=== PATIENT | female | born 1935 | race Caucasian/White ===

== ENCOUNTER 2017-07-11 17:35 | Inpatient (IN) | payer MEDICARE, OTHER ==
[2017-07-11 18:05] LABS: ADD MAN DIFF? NO
[2017-07-11 18:08] LABS: BASOPHIL # 0.1 10^3/ul (0.0-0.1); BASOPHILS % 0.4 % (0.0-2.0); EOSINOPHILS % 0.2 % (0.0-7.0); HEMATOCRIT 37.8 % (37.0-47.0); HEMOGLOBIN 12.3 g/dl (12.0-16.0); LYMPHOCYTES # 1.6 10^3/ul (0.8-2.9); LYMPHOCYTES % 8.9 % (15.0-51.0); MEAN CORPUSCULAR HEMOGLOBIN 30.1 pg (29.0-33.0); MEAN CORPUSCULAR HGB CONC 32.5 g/dl (32.0-37.0); MEAN CORPUSCULAR VOLUME 92.4 fl (82.0-101.0); MEAN PLATELET VOLUME 10.2 fl (7.4-10.4); MONOCYTE # 1.3 10^3/ul (0.3-0.9); MONOCYTES % 7.1 % (0.0-11.0); NEUTROPHIL # 14.8 10^3/ul (1.6-7.5); NEUTROPHILS % 82.2 % (39.0-77.0); PLATELET COUNT 240 10^3/UL (140-415); RED BLOOD COUNT 4.09 10^6/ul (4.20-5.40); RED CELL DISTRIBUTION WIDTH 14.4 % (11.5-14.5)
[2017-07-11] MEDS: ONDANSETRON 4 MG INJ IV ×2 (18:10→19:00)
[2017-07-11] MEDS: SOD CHLORIDE 0.9% 1,000 ML IV (18:10)
[2017-07-11] MEDS: FAMOTIDINE 20 MG INJ IV (18:10)
[2017-07-11 18:23] LABS: ALANINE AMINOTRANSFERASE 43 IU/L (13-69); ALBUMIN/GLOBULIN RATIO 1.21; ALKALINE PHOSPHATASE 75 IU/L (42-121); ANION GAP 12 (8-16); ASPARTATE AMINO TRANSFERASE 75 IU/L (15-46); BILIRUBIN,INDIRECT 0.3 mg/dl (0-1.1); BILIRUBIN,TOTAL 0.3 mg/dl (0.2-1.3); BLOOD UREA NITROGEN 15 mg/dl (7-20); CALCIUM 10.4 mg/dl (8.4-10.2); CARBON DIOXIDE 33 mmol/L (21-31); CHLORIDE 102 mmol/L (97-110); CREATININE 0.76 mg/dl (0.44-1.00); GLUCOSE 181 mg/dl (70-220); POTASSIUM 4.3 mmol/L (3.5-5.1); SODIUM 143 mmol/L (135-144); TOTAL PROTEIN 7.3 g/dl (6.1-8.1)
[2017-07-11 18:28] LABS: PROTIME 13.3 Sec (11.9-14.9)
[2017-07-11 18:29] LABS: PARTIAL THROMBOPLASTIN TIME 22.9 Sec (25.0-35.0)
[2017-07-11 18:30] LABS: AMYLASE 2309 U/L (11-123)
[2017-07-11 18:35] LABS: TROPONIN-I < 0.012 ng/ml (0.00-0.12)
[2017-07-11] MEDS: morphine 2 MG INJ IV (18:59)
[2017-07-11 19:07] LABS: LIPASE 19965 U/L (23-300)
[2017-07-11 21:22] LABS: ADD UMIC NO; UR ASCORBIC ACID NEGATIVE (NEGATIVE); UR BILIRUBIN (Dip) NEGATIVE (NEGATIVE); UR BLOOD (Dip) NEGATIVE (NEGATIVE); UR CLARITY CLEAR (CLEAR); UR COLOR STRAW (YELLOW); UR GLUCOSE (Dip) NEGATIVE (NEGATIVE); UR KETONES (Dip) TRACE mg/dL (NEGATIVE); UR LEUKOCYTE ESTERASE (Dip) NEGATIVE Leu/ul (NEGATIVE); UR NITRITE (Dip) NEGATIVE (NEGATIVE); UR SPECIFIC GRAVITY (Dip) 1.008 (1.003-1.030); UR TOTAL PROTEIN (Dip) NEGATIVE (NEGATIVE); UR UROBILINOGEN (Dip) NEGATIVE (NEGATIVE)
[2017-07-11] MEDS: IODIXANOL LOCM 100 ML BTL (21:22)
[2017-07-11] MEDS: SOD CHLORIDE 0.9% 100 ML (21:22)
[2017-07-11] MEDS ORDERED: NACL 0.9% 3 ML SYG IV (21:30)
[2017-07-11] MEDS ORDERED: ALBUTEROL/IPRATROPIUM (NEB) 3 ML AMP HHN (21:30)
[2017-07-11] MEDS: SALMETEROL/FLUTICASONE 250/50 INHA INH (21:30)
[2017-07-11] MEDS ORDERED: ONDANSETRON 4 MG INJ IV (21:30)
[2017-07-11] MEDS ORDERED: BISACODYL 10 MG SUPP PR (21:30)
[2017-07-11] MEDS ORDERED: morphine 2 MG INJ IV (21:30)
[2017-07-12 05:35] LABS: ADD MAN DIFF? NO
[2017-07-12 05:45] LABS: BASOPHILS % 0.3 % (0.0-2.0); EOSINOPHILS # 0.1 10^3/ul (0.0-0.5); EOSINOPHILS % 0.7 % (0.0-7.0); HEMATOCRIT 34.8 % (37.0-47.0); LYMPHOCYTES # 1.8 10^3/ul (0.8-2.9); LYMPHOCYTES % 14.3 % (15.0-51.0); MEAN CORPUSCULAR HEMOGLOBIN 29.3 pg (29.0-33.0); MEAN CORPUSCULAR HGB CONC 31.6 g/dl (32.0-37.0); MEAN CORPUSCULAR VOLUME 92.6 fl (82.0-101.0); MEAN PLATELET VOLUME 10.5 fl (7.4-10.4); MONOCYTES % 8.2 % (0.0-11.0); NEUTROPHIL # 9.3 10^3/ul (1.6-7.5); NEUTROPHILS % 75.8 % (39.0-77.0); PLATELET COUNT 213 10^3/UL (140-415); RED BLOOD COUNT 3.76 10^6/ul (4.20-5.40); RED CELL DISTRIBUTION WIDTH 14.6 % (11.5-14.5)
[2017-07-12 05:45] LABS: WHITE BLOOD COUNT 12.2 10^3/ul (4.8-10.8)
[2017-07-12 06:15] LABS: ALANINE AMINOTRANSFERASE 86 IU/L (13-69); ALBUMIN 3.2 g/dl (3.3-4.9); ALKALINE PHOSPHATASE 58 IU/L (42-121); ANION GAP 9 (8-16); ASPARTATE AMINO TRANSFERASE 76 IU/L (15-46); BILIRUBIN,INDIRECT 0.2 mg/dl (0-1.1); BILIRUBIN,TOTAL 0.2 mg/dl (0.2-1.3); BLOOD UREA NITROGEN 12 mg/dl (7-20); CALCIUM 10.1 mg/dl (8.4-10.2); CARBON DIOXIDE 36 mmol/L (21-31); CHLORIDE 108 mmol/L (97-110); CREATININE 0.74 mg/dl (0.44-1.00); GLUCOSE 92 mg/dl (70-220); MAGNESIUM 1.9 mg/dl (1.7-2.5); PHOSPHORUS 2.7 mg/dl (2.5-4.9); POTASSIUM 4.6 mmol/L (3.5-5.1); SODIUM 148 mmol/L (135-144); TOTAL PROTEIN 6.1 g/dl (6.1-8.1)
[2017-07-12] MEDS: ESCITALOPRAM 10 MG TAB PO (08:33)
[2017-07-12] MEDS: VERAPAMIL (SR) 240 MG TAB PO (08:34)
[2017-07-12] MEDS: MAGNESIUM HYDROXIDE 30ML CUP PO (08:36)
[2017-07-12] MEDS: SALMETEROL/FLUTICASONE 250/50 INHA INH ×2 (08:37→22:45)
[2017-07-12] MEDS: ROFLUMILAST 500 MCG TABLET PO (09:00)
[2017-07-12] MEDS: TIOTROPIUM 18 MCG CAPSULE INHA DEV INH (11:14)
[2017-07-12] MEDS: TAMOXIFEN 10 MG TAB PO (11:15)
[2017-07-12] MEDS: SOD CHLORIDE 0.45% 1,000 ML IV ×2 (12:03→22:44)
[2017-07-12] MEDS: PIPER-TAZO 3.375 GM IV (PMX) 100 ML IVPB ×2 (12:03→17:57)
[2017-07-12] MEDS: FAMOTIDINE 20 MG INJ IV (16:01)
[2017-07-12] MEDS: DOCUSATE SODIUM 100 MG CAP PO (21:00)
[2017-07-13] MEDS: PIPER-TAZO 3.375 GM IV (PMX) 100 ML IVPB ×4 (00:27→17:57)
[2017-07-13] MEDS: SOD CHLORIDE 0.45% 1,000 ML IV (03:00)
[2017-07-13 06:10] LABS: ADD MAN DIFF? NO
[2017-07-13 06:19] LABS: WHITE BLOOD COUNT 11.4 10^3/ul (4.8-10.8)
[2017-07-13 06:19] LABS: BASOPHILS % 0.4 % (0.0-2.0); EOSINOPHILS # 0.1 10^3/ul (0.0-0.5); EOSINOPHILS % 0.8 % (0.0-7.0); HEMATOCRIT 32.4 % (37.0-47.0); HEMOGLOBIN 10.2 g/dl (12.0-16.0); LYMPHOCYTES # 1.4 10^3/ul (0.8-2.9); LYMPHOCYTES % 11.9 % (15.0-51.0); MEAN CORPUSCULAR HEMOGLOBIN 29.6 pg (29.0-33.0); MEAN CORPUSCULAR HGB CONC 31.5 g/dl (32.0-37.0); MEAN CORPUSCULAR VOLUME 93.9 fl (82.0-101.0); MEAN PLATELET VOLUME 10.6 fl (7.4-10.4); MONOCYTE # 0.8 10^3/ul (0.3-0.9); MONOCYTES % 6.9 % (0.0-11.0); NEUTROPHIL # 9.1 10^3/ul (1.6-7.5); NEUTROPHILS % 79.6 % (39.0-77.0); PLATELET COUNT 189 10^3/UL (140-415); RED BLOOD COUNT 3.45 10^6/ul (4.20-5.40); RED CELL DISTRIBUTION WIDTH 14.7 % (11.5-14.5)
[2017-07-13 06:45] LABS: ALANINE AMINOTRANSFERASE 53 IU/L (13-69); ALBUMIN 2.9 g/dl (3.3-4.9); ALBUMIN/GLOBULIN RATIO 1.11; ALKALINE PHOSPHATASE 53 IU/L (42-121); ANION GAP 10 (8-16); ASPARTATE AMINO TRANSFERASE 35 IU/L (15-46); BILIRUBIN,INDIRECT 0.4 mg/dl (0-1.1); BILIRUBIN,TOTAL 0.4 mg/dl (0.2-1.3); BLOOD UREA NITROGEN 12 mg/dl (7-20); CALCIUM 8.8 mg/dl (8.4-10.2); CARBON DIOXIDE 28 mmol/L (21-31); CHLORIDE 108 mmol/L (97-110); GLUCOSE 57 mg/dl (70-220); LIPASE 1197 U/L (23-300); POTASSIUM 3.6 mmol/L (3.5-5.1); SODIUM 142 mmol/L (135-144); TOTAL PROTEIN 5.5 g/dl (6.1-8.1)
[2017-07-13] MEDS: DEXTROSE 5%-0.45% NACL 1,000 ML IV ×2 (08:52→17:57)
[2017-07-13] MEDS: TAMOXIFEN 10 MG TAB PO (08:54)
[2017-07-13] MEDS: ESCITALOPRAM 10 MG TAB PO (08:54)
[2017-07-13] MEDS: ROFLUMILAST 500 MCG TABLET PO (08:55)
[2017-07-13] MEDS: SALMETEROL/FLUTICASONE 250/50 INHA INH ×2 (08:55→21:20)
[2017-07-13] MEDS: TIOTROPIUM 18 MCG CAPSULE INHA DEV INH (08:55)
[2017-07-13] MEDS: FAMOTIDINE 20 MG INJ IV (08:55)
[2017-07-13] MEDS: VERAPAMIL (SR) 240 MG TAB PO (09:00)
[2017-07-13] MEDS: MAGNESIUM HYDROXIDE 30ML CUP PO (09:00)
[2017-07-13] MEDS ORDERED: morphine LIQ (10 MG/5 ML) CUP PO (16:30)
[2017-07-13] MEDS: DOCUSATE SODIUM 100 MG CAP PO (21:00)
[2017-07-14] MEDS: PIPER-TAZO 3.375 GM IV (PMX) 100 ML IVPB ×5 (00:23→23:04)
[2017-07-14] MEDS: ACETAMINOPHEN 325 MG TAB PO (02:56)
[2017-07-14] MEDS: DEXTROSE 5%-0.45% NACL 1,000 ML IV ×4 (03:01→23:04)
[2017-07-14 07:23] LABS: ADD MAN DIFF? NO
[2017-07-14 07:36] LABS: BASOPHILS % 0.2 % (0.0-2.0); EOSINOPHILS # 0.1 10^3/ul (0.0-0.5); EOSINOPHILS % 1.1 % (0.0-7.0); HEMATOCRIT 30.4 % (37.0-47.0); HEMOGLOBIN 9.7 g/dl (12.0-16.0); LYMPHOCYTES # 1.3 10^3/ul (0.8-2.9); LYMPHOCYTES % 15.9 % (15.0-51.0); MEAN CORPUSCULAR HEMOGLOBIN 29.1 pg (29.0-33.0); MEAN CORPUSCULAR HGB CONC 31.9 g/dl (32.0-37.0); MEAN CORPUSCULAR VOLUME 91.3 fl (82.0-101.0); MEAN PLATELET VOLUME 10.3 fl (7.4-10.4); MONOCYTE # 0.8 10^3/ul (0.3-0.9); MONOCYTES % 10.4 % (0.0-11.0); NEUTROPHIL # 5.8 10^3/ul (1.6-7.5); NEUTROPHILS % 71.8 % (39.0-77.0); PLATELET COUNT 182 10^3/UL (140-415); RED BLOOD COUNT 3.33 10^6/ul (4.20-5.40); RED CELL DISTRIBUTION WIDTH 14.4 % (11.5-14.5)
[2017-07-14 07:36] LABS: WHITE BLOOD COUNT 8.1 10^3/ul (4.8-10.8)
[2017-07-14 07:50] LABS: ALANINE AMINOTRANSFERASE 43 IU/L (13-69); ALBUMIN 2.8 g/dl (3.3-4.9); ALBUMIN/GLOBULIN RATIO 1.07; ALKALINE PHOSPHATASE 43 IU/L (42-121); ANION GAP 9 (8-16); ASPARTATE AMINO TRANSFERASE 19 IU/L (15-46); BILIRUBIN,INDIRECT 0.5 mg/dl (0-1.1); BILIRUBIN,TOTAL 0.5 mg/dl (0.2-1.3); BLOOD UREA NITROGEN 4 mg/dl (7-20); CALCIUM 8.5 mg/dl (8.4-10.2); CARBON DIOXIDE 28 mmol/L (21-31); CHLORIDE 110 mmol/L (97-110); CREATININE 0.63 mg/dl (0.44-1.00); GLUCOSE 115 mg/dl (70-220); LIPASE 424 U/L (23-300); SODIUM 144 mmol/L (135-144); TOTAL PROTEIN 5.4 g/dl (6.1-8.1)
[2017-07-14] MEDS: FAMOTIDINE 20 MG INJ IV (08:41)
[2017-07-14] MEDS: TIOTROPIUM 18 MCG CAPSULE INHA DEV INH (08:41)
[2017-07-14] MEDS: SALMETEROL/FLUTICASONE 250/50 INHA INH ×2 (08:41→20:52)
[2017-07-14] MEDS: ESCITALOPRAM 10 MG TAB PO (08:42)
[2017-07-14] MEDS: VERAPAMIL (SR) 240 MG TAB PO ×2 (08:42→09:00)
[2017-07-14] MEDS: MAGNESIUM HYDROXIDE 30ML CUP PO ×2 (08:43→09:00)
[2017-07-14] MEDS: ROFLUMILAST 500 MCG TABLET PO (08:43)
[2017-07-14] MEDS: TAMOXIFEN 10 MG TAB PO (09:08)
[2017-07-14] MEDS: POTASSIUM CHLORIDE (SR) 20 MEQ TAB PO (12:32)
[2017-07-14] MEDS: DOCUSATE SODIUM 100 MG CAP PO (20:53)
[2017-07-14] MEDS: MUPIROCIN 2% 22 GM OINT TOP (20:53)
[2017-07-15] MEDS: PIPER-TAZO 3.375 GM IV (PMX) 100 ML IVPB ×4 (05:20→23:46)
[2017-07-15 05:55] LABS: ADD MAN DIFF? NO
[2017-07-15 06:07] LABS: BASOPHILS % 0.4 % (0.0-2.0); EOSINOPHILS # 0.1 10^3/ul (0.0-0.5); EOSINOPHILS % 1.5 % (0.0-7.0); HEMATOCRIT 33.8 % (37.0-47.0); HEMOGLOBIN 10.9 g/dl (12.0-16.0); LYMPHOCYTES # 1.2 10^3/ul (0.8-2.9); LYMPHOCYTES % 12.7 % (15.0-51.0); MEAN CORPUSCULAR HEMOGLOBIN 29.5 pg (29.0-33.0); MEAN CORPUSCULAR HGB CONC 32.2 g/dl (32.0-37.0); MEAN CORPUSCULAR VOLUME 91.6 fl (82.0-101.0); MEAN PLATELET VOLUME 10.2 fl (7.4-10.4); MONOCYTES % 10.9 % (0.0-11.0); NEUTROPHIL # 6.8 10^3/ul (1.6-7.5); NEUTROPHILS % 73.8 % (39.0-77.0); PLATELET COUNT 183 10^3/UL (140-415); RED BLOOD COUNT 3.69 10^6/ul (4.20-5.40); RED CELL DISTRIBUTION WIDTH 14.1 % (11.5-14.5)
[2017-07-15 06:07] LABS: WHITE BLOOD COUNT 9.2 10^3/ul (4.8-10.8)
[2017-07-15 06:25] LABS: ALANINE AMINOTRANSFERASE 39 IU/L (13-69); ALBUMIN/GLOBULIN RATIO 1.03; ALKALINE PHOSPHATASE 48 IU/L (42-121); ANION GAP 9 (8-16); ASPARTATE AMINO TRANSFERASE 16 IU/L (15-46); BILIRUBIN,INDIRECT 0.1 mg/dl (0-1.1); BILIRUBIN,TOTAL 0.1 mg/dl (0.2-1.3); CALCIUM 8.8 mg/dl (8.4-10.2); CARBON DIOXIDE 27 mmol/L (21-31); CHLORIDE 110 mmol/L (97-110); CREATININE 0.54 mg/dl (0.44-1.00); GLUCOSE 122 mg/dl (70-220); LIPASE 218 U/L (23-300); SODIUM 143 mmol/L (135-144); TOTAL PROTEIN 5.9 g/dl (6.1-8.1)
[2017-07-15 06:28] LABS: BLOOD UREA NITROGEN < 2 mg/dl (7-20)
[2017-07-15 06:30] LABS: POTASSIUM 2.9 mmol/L (3.5-5.1)
[2017-07-15] MEDS: POTASSIUM CHLORIDE (SR) 20 MEQ TAB PO (06:52)
[2017-07-15 07:31] LABS: MAGNESIUM 1.6 mg/dl (1.7-2.5)
[2017-07-15] MEDS: POTASSIUM CHLORIDE 100 ML IVPB ×2 (08:57→12:05)
[2017-07-15] MEDS: ESCITALOPRAM 10 MG TAB PO (08:57)
[2017-07-15] MEDS: ROFLUMILAST 500 MCG TABLET PO (08:59)
[2017-07-15] MEDS: TAMOXIFEN 10 MG TAB PO (08:59)
[2017-07-15] MEDS: VERAPAMIL (SR) 240 MG TAB PO (08:59)
[2017-07-15] MEDS: TIOTROPIUM 18 MCG CAPSULE INHA DEV INH (08:59)
[2017-07-15] MEDS: MAGNESIUM HYDROXIDE 30ML CUP PO (09:00)
[2017-07-15] MEDS: FAMOTIDINE 20 MG INJ IV (09:00)
[2017-07-15] MEDS: DEXTROSE 5%-0.45% NACL 1,000 ML IV ×3 (09:01→23:46)
[2017-07-15] MEDS: SALMETEROL/FLUTICASONE 250/50 INHA INH ×2 (09:01→20:32)
[2017-07-15] MEDS: MUPIROCIN 2% 22 GM OINT TOP ×2 (09:40→20:35)
[2017-07-15] MEDS: DOCUSATE SODIUM 100 MG CAP PO (20:36)
[2017-07-16] MEDS: PIPER-TAZO 3.375 GM IV (PMX) 100 ML IVPB ×4 (05:21→23:34)
[2017-07-16 05:55] LABS: ADD MAN DIFF? NO
[2017-07-16 06:03] LABS: WHITE BLOOD COUNT 8.7 10^3/ul (4.8-10.8)
[2017-07-16 06:03] LABS: BASOPHILS % 0.2 % (0.0-2.0); EOSINOPHILS # 0.1 10^3/ul (0.0-0.5); EOSINOPHILS % 1.4 % (0.0-7.0); HEMATOCRIT 30.4 % (37.0-47.0); HEMOGLOBIN 9.8 g/dl (12.0-16.0); LYMPHOCYTES # 1.2 10^3/ul (0.8-2.9); LYMPHOCYTES % 13.9 % (15.0-51.0); MEAN CORPUSCULAR HEMOGLOBIN 29.7 pg (29.0-33.0); MEAN CORPUSCULAR HGB CONC 32.2 g/dl (32.0-37.0); MEAN CORPUSCULAR VOLUME 92.1 fl (82.0-101.0); MEAN PLATELET VOLUME 10.3 fl (7.4-10.4); MONOCYTES % 11.4 % (0.0-11.0); NEUTROPHIL # 6.3 10^3/ul (1.6-7.5); NEUTROPHILS % 72.3 % (39.0-77.0); PLATELET COUNT 165 10^3/UL (140-415); RED CELL DISTRIBUTION WIDTH 14.4 % (11.5-14.5)
[2017-07-16 06:48] LABS: ALANINE AMINOTRANSFERASE 26 IU/L (13-69); ALBUMIN 2.8 g/dl (3.3-4.9); ALKALINE PHOSPHATASE 42 IU/L (42-121); ANION GAP 11 (8-16); ASPARTATE AMINO TRANSFERASE 10 IU/L (15-46); BILIRUBIN,INDIRECT 0.2 mg/dl (0-1.1); BILIRUBIN,TOTAL 0.2 mg/dl (0.2-1.3); BLOOD UREA NITROGEN 4 mg/dl (7-20); CALCIUM 8.3 mg/dl (8.4-10.2); CARBON DIOXIDE 25 mmol/L (21-31); CHLORIDE 110 mmol/L (97-110); CREATININE 0.58 mg/dl (0.44-1.00); GLUCOSE 185 mg/dl (70-220); LIPASE 341 U/L (23-300); POTASSIUM 3.6 mmol/L (3.5-5.1); SODIUM 142 mmol/L (135-144); TOTAL PROTEIN 5.6 g/dl (6.1-8.1)
[2017-07-16] MEDS: MAGNESIUM HYDROXIDE 30ML CUP PO (09:00)
[2017-07-16] MEDS: DEXTROSE 5%-0.45% NACL 1,000 ML IV ×3 (09:00→22:23)
[2017-07-16] MEDS: TIOTROPIUM 18 MCG CAPSULE INHA DEV INH (09:00)
[2017-07-16] MEDS: SALMETEROL/FLUTICASONE 250/50 INHA INH ×2 (09:20→20:34)
[2017-07-16] MEDS: FAMOTIDINE 20 MG INJ IV (09:21)
[2017-07-16] MEDS: TAMOXIFEN 10 MG TAB PO (09:21)
[2017-07-16] MEDS: ROFLUMILAST 500 MCG TABLET PO (09:22)
[2017-07-16] MEDS: VERAPAMIL (SR) 240 MG TAB PO (09:22)
[2017-07-16] MEDS: ESCITALOPRAM 10 MG TAB PO (09:22)
[2017-07-16] MEDS: MUPIROCIN 2% 22 GM OINT TOP ×2 (09:23→20:35)
[2017-07-16] MEDS: DOCUSATE SODIUM 100 MG CAP PO ×3 (20:34→20:43)
[2017-07-17] MEDS: ACETAMINOPHEN 325 MG TAB PO (02:05)
[2017-07-17] MEDS: PIPER-TAZO 3.375 GM IV (PMX) 100 ML IVPB ×4 (05:48→23:51)
[2017-07-17 06:14] LABS: ADD MAN DIFF? NO
[2017-07-17 06:21] LABS: WHITE BLOOD COUNT 8.5 10^3/ul (4.8-10.8)
[2017-07-17 06:21] LABS: BASOPHILS % 0.4 % (0.0-2.0); EOSINOPHILS # 0.1 10^3/ul (0.0-0.5); EOSINOPHILS % 0.9 % (0.0-7.0); HEMATOCRIT 27.8 % (37.0-47.0); HEMOGLOBIN 9.1 g/dl (12.0-16.0); LYMPHOCYTES # 1.2 10^3/ul (0.8-2.9); LYMPHOCYTES % 14.6 % (15.0-51.0); MEAN CORPUSCULAR HEMOGLOBIN 29.6 pg (29.0-33.0); MEAN CORPUSCULAR HGB CONC 32.7 g/dl (32.0-37.0); MEAN CORPUSCULAR VOLUME 90.6 fl (82.0-101.0); MEAN PLATELET VOLUME 10.5 fl (7.4-10.4); MONOCYTES % 11.3 % (0.0-11.0); NEUTROPHIL # 6.1 10^3/ul (1.6-7.5); NEUTROPHILS % 72.2 % (39.0-77.0); PLATELET COUNT 164 10^3/UL (140-415); RED BLOOD COUNT 3.07 10^6/ul (4.20-5.40); RED CELL DISTRIBUTION WIDTH 14.6 % (11.5-14.5)
[2017-07-17 06:59] LABS: ALANINE AMINOTRANSFERASE 25 IU/L (13-69); ALBUMIN 2.7 g/dl (3.3-4.9); ALBUMIN/GLOBULIN RATIO 1.03; ALKALINE PHOSPHATASE 40 IU/L (42-121); ANION GAP 8 (8-16); ASPARTATE AMINO TRANSFERASE 10 IU/L (15-46); BILIRUBIN,INDIRECT 0.1 mg/dl (0-1.1); BILIRUBIN,TOTAL 0.1 mg/dl (0.2-1.3); BLOOD UREA NITROGEN 3 mg/dl (7-20); CALCIUM 8.7 mg/dl (8.4-10.2); CARBON DIOXIDE 26 mmol/L (21-31); CHLORIDE 113 mmol/L (97-110); CREATININE 0.61 mg/dl (0.44-1.00); GLUCOSE 145 mg/dl (70-220); LIPASE 269 U/L (23-300); POTASSIUM 3.1 mmol/L (3.5-5.1); SODIUM 144 mmol/L (135-144); TOTAL PROTEIN 5.3 g/dl (6.1-8.1)
[2017-07-17] MEDS: MUPIROCIN 2% 22 GM OINT TOP ×2 (08:34→20:15)
[2017-07-17] MEDS: SALMETEROL/FLUTICASONE 250/50 INHA INH ×2 (08:35→20:14)
[2017-07-17] MEDS: DEXTROSE 5%-0.45% NACL 1,000 ML IV ×3 (08:35→23:51)
[2017-07-17] MEDS: TIOTROPIUM 18 MCG CAPSULE INHA DEV INH (08:35)
[2017-07-17] MEDS: FAMOTIDINE 20 MG INJ IV (08:36)
[2017-07-17] MEDS: VERAPAMIL (SR) 240 MG TAB PO (08:37)
[2017-07-17] MEDS: TAMOXIFEN 10 MG TAB PO (08:37)
[2017-07-17] MEDS: ESCITALOPRAM 10 MG TAB PO (08:37)
[2017-07-17] MEDS: ROFLUMILAST 500 MCG TABLET PO (08:48)
[2017-07-17] MEDS: MAGNESIUM HYDROXIDE 30ML CUP PO ×2 (08:48→08:55)
[2017-07-17] MEDS: POTASSIUM CHLORIDE (SR) 20 MEQ TAB PO ×2 (12:21→13:22)
[2017-07-17] MEDS: DOCUSATE SODIUM 100 MG CAP PO (20:15)
[2017-07-18] MEDS: PIPER-TAZO 3.375 GM IV (PMX) 100 ML IVPB ×3 (05:20→17:00)
[2017-07-18 06:21] LABS: ADD MAN DIFF? NO
[2017-07-18 06:25] LABS: BASOPHILS % 0.5 % (0.0-2.0); EOSINOPHILS # 0.1 10^3/ul (0.0-0.5); EOSINOPHILS % 1.6 % (0.0-7.0); HEMOGLOBIN 9.7 g/dl (12.0-16.0); LYMPHOCYTES # 1.1 10^3/ul (0.8-2.9); LYMPHOCYTES % 12.9 % (15.0-51.0); MEAN CORPUSCULAR HEMOGLOBIN 29.3 pg (29.0-33.0); MEAN CORPUSCULAR HGB CONC 32.3 g/dl (32.0-37.0); MEAN CORPUSCULAR VOLUME 90.6 fl (82.0-101.0); MEAN PLATELET VOLUME 10.7 fl (7.4-10.4); MONOCYTES % 11.1 % (0.0-11.0); NEUTROPHIL # 6.3 10^3/ul (1.6-7.5); NEUTROPHILS % 73.4 % (39.0-77.0); PLATELET COUNT 192 10^3/UL (140-415); RED BLOOD COUNT 3.31 10^6/ul (4.20-5.40); RED CELL DISTRIBUTION WIDTH 14.5 % (11.5-14.5)
[2017-07-18 06:25] LABS: WHITE BLOOD COUNT 8.6 10^3/ul (4.8-10.8)
[2017-07-18 06:45] LABS: PHOSPHORUS 1.8 mg/dl (2.5-4.9)
[2017-07-18 06:45] LABS: MAGNESIUM 1.6 mg/dl (1.7-2.5)
[2017-07-18 06:48] LABS: ALANINE AMINOTRANSFERASE 24 IU/L (13-69); ALKALINE PHOSPHATASE 47 IU/L (42-121); ANION GAP 13 (8-16); ASPARTATE AMINO TRANSFERASE 12 IU/L (15-46); BILIRUBIN,INDIRECT 0.3 mg/dl (0-1.1); BILIRUBIN,TOTAL 0.3 mg/dl (0.2-1.3); BLOOD UREA NITROGEN < 2 mg/dl (7-20); CALCIUM 8.9 mg/dl (8.4-10.2); CARBON DIOXIDE 26 mmol/L (21-31); CHLORIDE 110 mmol/L (97-110); CREATININE 0.57 mg/dl (0.44-1.00); GLUCOSE 111 mg/dl (70-220); POTASSIUM 3.5 mmol/L (3.5-5.1); SODIUM 145 mmol/L (135-144)
[2017-07-18 06:52] LABS: INR 1.19; PROTIME 15.3 Sec (11.9-14.9); PT RATIO 1.2
[2017-07-18 06:53] LABS: PARTIAL THROMBOPLASTIN TIME 28.6 Sec (25.0-35.0)
[2017-07-18] MEDS: VERAPAMIL (SR) 240 MG TAB PO (08:29)
[2017-07-18] MEDS: MAGNESIUM HYDROXIDE 30ML CUP PO (08:30)
[2017-07-18] MEDS: SALMETEROL/FLUTICASONE 250/50 INHA INH ×2 (08:33→20:53)
[2017-07-18] MEDS: TIOTROPIUM 18 MCG CAPSULE INHA DEV INH (08:34)
[2017-07-18] MEDS: ESCITALOPRAM 10 MG TAB PO (08:34)
[2017-07-18] MEDS: ROFLUMILAST 500 MCG TABLET PO (08:34)
[2017-07-18] MEDS: FAMOTIDINE 20 MG INJ IV (08:34)
[2017-07-18] MEDS: TAMOXIFEN 10 MG TAB PO (08:35)
[2017-07-18] MEDS: MUPIROCIN 2% 22 GM OINT TOP ×2 (08:46→20:53)
[2017-07-18] MEDS: traMADol 50 MG TAB PO (12:31)
[2017-07-18] MEDS ORDERED: NEUTRA-PHOS 250 MG PACKET PO (13:00)
[2017-07-18] MEDS: MAGNESIUM SULFATE 2 GM/50 ML 50 ML IVPB (14:22)
[2017-07-18] MEDS: NEUTRA-PHOS 250 MG PACKET PO ×2 (14:22→20:53)
[2017-07-18] MEDS: DOCUSATE SODIUM 100 MG CAP PO (21:00)
[2017-07-18] MEDS: DEXTROSE 5%-0.45% NACL 1,000 ML IV (21:44)
[2017-07-19] MEDS: PIPER-TAZO 3.375 GM IV (PMX) 100 ML IVPB ×2 (00:26→05:40)
[2017-07-19 07:13] LABS: ADD MAN DIFF? NO
[2017-07-19 07:19] LABS: WHITE BLOOD COUNT 9.5 10^3/ul (4.8-10.8)
[2017-07-19 07:19] LABS: BASOPHILS % 0.4 % (0.0-2.0); EOSINOPHILS # 0.1 10^3/ul (0.0-0.5); EOSINOPHILS % 0.9 % (0.0-7.0); HEMATOCRIT 29.5 % (37.0-47.0); HEMOGLOBIN 9.7 g/dl (12.0-16.0); LYMPHOCYTES # 1.4 10^3/ul (0.8-2.9); LYMPHOCYTES % 14.6 % (15.0-51.0); MEAN CORPUSCULAR HEMOGLOBIN 29.6 pg (29.0-33.0); MEAN CORPUSCULAR HGB CONC 32.9 g/dl (32.0-37.0); MEAN CORPUSCULAR VOLUME 89.9 fl (82.0-101.0); MEAN PLATELET VOLUME 10.6 fl (7.4-10.4); MONOCYTES % 10.5 % (0.0-11.0); NEUTROPHIL # 6.9 10^3/ul (1.6-7.5); PLATELET COUNT 203 10^3/UL (140-415); RED BLOOD COUNT 3.28 10^6/ul (4.20-5.40); RED CELL DISTRIBUTION WIDTH 14.6 % (11.5-14.5)
[2017-07-19 07:41] LABS: MAGNESIUM 1.9 mg/dl (1.7-2.5)
[2017-07-19 07:48] LABS: ALANINE AMINOTRANSFERASE 25 IU/L (13-69); ALBUMIN 2.8 g/dl (3.3-4.9); ALBUMIN/GLOBULIN RATIO 1.07; ALKALINE PHOSPHATASE 48 IU/L (42-121); ANION GAP 12 (8-16); ASPARTATE AMINO TRANSFERASE 10 IU/L (15-46); BILIRUBIN,INDIRECT 0.2 mg/dl (0-1.1); BILIRUBIN,TOTAL 0.2 mg/dl (0.2-1.3); CALCIUM 8.5 mg/dl (8.4-10.2); CARBON DIOXIDE 27 mmol/L (21-31); CHLORIDE 107 mmol/L (97-110); CREATININE 0.54 mg/dl (0.44-1.00); GLUCOSE 122 mg/dl (70-220); POTASSIUM 3.3 mmol/L (3.5-5.1); SODIUM 143 mmol/L (135-144); TOTAL PROTEIN 5.4 g/dl (6.1-8.1)
[2017-07-19 07:50] LABS: BLOOD UREA NITROGEN < 2 mg/dl (7-20)
[2017-07-19 07:51] LABS: INR 1.14; PARTIAL THROMBOPLASTIN TIME 28.6 Sec (25.0-35.0); PROTIME 14.8 Sec (11.9-14.9); PT RATIO 1.2
[2017-07-19] MEDS: FAMOTIDINE 20 MG INJ IV (08:40)
[2017-07-19] MEDS: TAMOXIFEN 10 MG TAB PO (08:41)
[2017-07-19] MEDS: ESCITALOPRAM 10 MG TAB PO (08:45)
[2017-07-19] MEDS: VERAPAMIL (SR) 240 MG TAB PO (08:45)
[2017-07-19] MEDS: TIOTROPIUM 18 MCG CAPSULE INHA DEV INH (08:46)
[2017-07-19] MEDS: NEUTRA-PHOS 250 MG PACKET PO ×2 (08:46→20:42)
[2017-07-19] MEDS: MAGNESIUM HYDROXIDE 30ML CUP PO ×2 (08:47→09:00)
[2017-07-19] MEDS: SALMETEROL/FLUTICASONE 250/50 INHA INH ×2 (08:48→20:42)
[2017-07-19] MEDS: ROFLUMILAST 500 MCG TABLET PO (08:49)
[2017-07-19] MEDS: MUPIROCIN 2% 22 GM OINT TOP ×2 (08:51→20:42)
[2017-07-19] MEDS: FLUCONAZOLE 200 MG TAB PO (12:13)
[2017-07-19] MEDS: VANCOMYCIN HCL 250 MG/5ML POSYG PO ×3 (12:13→23:58)
[2017-07-19] MEDS: POTASSIUM PHOSPHATE 30 MM in SOD CHLORIDE 0.9% 250 ML IVPB (12:14)
[2017-07-19] MEDS: traMADol 50 MG TAB PO (12:14)
[2017-07-19] MEDS: ACETAMINOPHEN 325 MG TAB PO (19:46)
[2017-07-20] MEDS: VANCOMYCIN HCL 250 MG/5ML POSYG PO ×5 (05:39→23:42)
[2017-07-20] MEDS ORDERED: FLUCONAZOLE 100 MG TAB PO (09:00)
[2017-07-20] MEDS: SALMETEROL/FLUTICASONE 250/50 INHA INH ×2 (09:53→20:37)
[2017-07-20] MEDS: TIOTROPIUM 18 MCG CAPSULE INHA DEV INH (09:53)
[2017-07-20] MEDS: ROFLUMILAST 500 MCG TABLET PO (09:54)
[2017-07-20] MEDS: NEUTRA-PHOS 250 MG PACKET PO (09:54)
[2017-07-20] MEDS: VERAPAMIL (SR) 240 MG TAB PO (09:54)
[2017-07-20] MEDS: ESCITALOPRAM 10 MG TAB PO (09:54)
[2017-07-20] MEDS: MUPIROCIN 2% 22 GM OINT TOP ×4 (09:55→20:36)
[2017-07-20] MEDS: TAMOXIFEN 10 MG TAB PO (09:58)
[2017-07-20] MEDS: PIPER-TAZO 3.375 GM IV (PMX) 100 ML IVPB ×3 (13:02→23:40)
[2017-07-21] MEDS: traMADol 50 MG TAB PO (00:29)
[2017-07-21] MEDS: VANCOMYCIN HCL 250 MG/5ML POSYG PO ×4 (05:58→18:51)
[2017-07-21] MEDS: PIPER-TAZO 3.375 GM IV (PMX) 100 ML IVPB ×3 (05:58→17:43)
[2017-07-21] MEDS ORDERED: ETOMIDATE 20 MG INJ (07:00)
[2017-07-21] MEDS ORDERED: PROPOFOL 20 ML (07:37)
[2017-07-21] MEDS ORDERED: GLYCOPYRROLATE 0.4 MG INJ (07:37)
[2017-07-21] MEDS ORDERED: ROCURONIUM 50 MG INJ (07:37)
[2017-07-21] MEDS ORDERED: NEOSTIGMINE 3 MG/3 ML SYRINGE (07:37)
[2017-07-21] MEDS ORDERED: CEFAZOLIN 1 GM INJ (07:37)
[2017-07-21] MEDS ORDERED: DEXAMETHASONE 4 MG/ML 1 ML INJ (07:40)
[2017-07-21] MEDS ORDERED: ONDANSETRON 4 MG INJ (07:40)
[2017-07-21] MEDS ORDERED: MIDAZOLAM 1 MG/ML 2 ML INJ (07:40)
[2017-07-21] MEDS ORDERED: FENTAnyl 50 MCG/ML VIAL (07:40)
[2017-07-21] MEDS ORDERED: SUGAMMADEX SODIUM 200 MG/2 ML VIAL IV (08:34)
[2017-07-21] MEDS: BUPIVACAINE 0.25% (MPF) 30 ML INJ (08:35)
[2017-07-21] MEDS ORDERED: OXYCODONE/ACETAMINOPHEN (5/325) TAB PO ×2 (09:00)
[2017-07-21] MEDS ORDERED: DIPHENOXYLATE/ATROPINE TAB PO (09:30)
[2017-07-21] MEDS: SALMETEROL/FLUTICASONE 250/50 INHA INH ×2 (12:00→21:10)
[2017-07-21] MEDS: ESCITALOPRAM 10 MG TAB PO (12:00)
[2017-07-21] MEDS: ROFLUMILAST 500 MCG TABLET PO (12:00)
[2017-07-21] MEDS: TIOTROPIUM 18 MCG CAPSULE INHA DEV INH (12:00)
[2017-07-21] MEDS: VERAPAMIL (SR) 240 MG TAB PO (12:00)
[2017-07-21] MEDS: TAMOXIFEN 10 MG TAB PO (12:00)
[2017-07-21] MEDS: MUPIROCIN 2% 22 GM OINT TOP ×3 (12:00→21:11)
[2017-07-22] MEDS: VANCOMYCIN HCL 250 MG/5ML POSYG PO ×4 (00:17→17:10)
[2017-07-22] MEDS: PIPER-TAZO 3.375 GM IV (PMX) 100 ML IVPB ×4 (00:17→17:10)
[2017-07-22 07:12] LABS: ADD MAN DIFF? NO
[2017-07-22 07:14] LABS: BASOPHILS % 0.3 % (0.0-2.0); EOSINOPHILS % 0.1 % (0.0-7.0); HEMATOCRIT 27.2 % (37.0-47.0); HEMOGLOBIN 8.8 g/dl (12.0-16.0); LYMPHOCYTES # 0.9 10^3/ul (0.8-2.9); LYMPHOCYTES % 8.1 % (15.0-51.0); MEAN CORPUSCULAR HEMOGLOBIN 29.7 pg (29.0-33.0); MEAN CORPUSCULAR HGB CONC 32.4 g/dl (32.0-37.0); MEAN CORPUSCULAR VOLUME 91.9 fl (82.0-101.0); MEAN PLATELET VOLUME 10.2 fl (7.4-10.4); MONOCYTE # 0.9 10^3/ul (0.3-0.9); MONOCYTES % 8.3 % (0.0-11.0); NEUTROPHIL # 9.2 10^3/ul (1.6-7.5); NEUTROPHILS % 82.8 % (39.0-77.0); PLATELET COUNT 226 10^3/UL (140-415); RED BLOOD COUNT 2.96 10^6/ul (4.20-5.40); RED CELL DISTRIBUTION WIDTH 14.5 % (11.5-14.5)
[2017-07-22 07:14] LABS: WHITE BLOOD COUNT 11.2 10^3/ul (4.8-10.8)
[2017-07-22 07:59] LABS: ANION GAP 9 (8-16); BLOOD UREA NITROGEN 13 mg/dl (7-20); CALCIUM 9.3 mg/dl (8.4-10.2); CARBON DIOXIDE 33 mmol/L (21-31); CHLORIDE 110 mmol/L (97-110); CREATININE 0.71 mg/dl (0.44-1.00); GLUCOSE 102 mg/dl (70-220); MAGNESIUM 1.9 mg/dl (1.7-2.5); POTASSIUM 3.6 mmol/L (3.5-5.1); SODIUM 148 mmol/L (135-144)
[2017-07-22] MEDS: TIOTROPIUM 18 MCG CAPSULE INHA DEV INH (08:25)
[2017-07-22] MEDS: VERAPAMIL (SR) 240 MG TAB PO (08:26)
[2017-07-22] MEDS: SALMETEROL/FLUTICASONE 250/50 INHA INH (08:26)
[2017-07-22] MEDS: TAMOXIFEN 10 MG TAB PO (08:27)
[2017-07-22] MEDS: ROFLUMILAST 500 MCG TABLET PO (08:28)
[2017-07-22] MEDS: MUPIROCIN 2% 22 GM OINT TOP (08:28)
[2017-07-22] MEDS: ESCITALOPRAM 10 MG TAB PO (08:28)
[2017-07-22 12:04] LABS: ALANINE AMINOTRANSFERASE 30 IU/L (13-69); ALBUMIN 3.1 g/dl (3.3-4.9); ALKALINE PHOSPHATASE 46 IU/L (42-121); ANION GAP 12 (8-16); ASPARTATE AMINO TRANSFERASE 42 IU/L (15-46); BILIRUBIN,INDIRECT 0.1 mg/dl (0-1.1); BILIRUBIN,TOTAL 0.1 mg/dl (0.2-1.3); BLOOD UREA NITROGEN 15 mg/dl (7-20); CALCIUM 9.6 mg/dl (8.4-10.2); CARBON DIOXIDE 31 mmol/L (21-31); CHLORIDE 108 mmol/L (97-110); CREATININE 0.73 mg/dl (0.44-1.00); GLUCOSE 114 mg/dl (70-220); POTASSIUM 3.5 mmol/L (3.5-5.1); SODIUM 147 mmol/L (135-144); TOTAL PROTEIN 6.2 g/dl (6.1-8.1)
== END 2017-07-22 19:55 | DRG 418 ==
LOC: E/R 17:35 → PP2 21:11
PROC: 0FT44ZZ Resection of Gallbladder, Percutaneous Endoscopic Approach (ICD-10-PCS; principal; 2017-07-21 07:30)
DX: K85.10 Biliary acute pancreatitis without necrosis or infection (principal); K80.10 Calculus of gallbladder with chronic cholecystitis without obstruction; C78.00 Secondary malignant neoplasm of unspecified lung; C50.919 Malignant neoplasm of unspecified site of unspecified female breast; Z66 Do not resuscitate; F32.9 Major depressive disorder, single episode, unspecified; I10 Essential (primary) hypertension; J44.9 Chronic obstructive pulmonary disease, unspecified; K21.9 Gastro-esophageal reflux disease without esophagitis; Z22.322 Carrier or suspected carrier of Methicillin resistant Staphylococcus aureus; R19.7 Diarrhea, unspecified
CPT/HCPCS: 36415; 71045; 74177; 76705; 78226; 80048; 80053; 81003; 82150; 83690; 83735; 84100; 84484; 85025; 85610; 85730; 87040; 87045; 87075; 87081; 88304; 93005; 93306; 93971; 96374; 96375; 99285-25